=== PATIENT | female | born 1945 | race American Indian/Alaskan Native ===

== ENCOUNTER 2017-09-16 07:51 | Day surgery (SDC) | payer MEDICARE, OTHER ==
[2017-09-07 09:56] VITALS: BMI 38.3
[2017-09-16] MEDS ORDERED: Propofol 10 mg/ml Inj (20 ML) ONE (08:24)
[2017-09-16] MEDS ORDERED: Sodium Chloride 0.9% 1,000 ML IV SCH (09:15)
[2017-09-16 10:44] VITALS: RESP 16; TEMP 98; O2SAT 99
[2017-09-16 11:09] VITALS: BP 140/51; PULSE 60
== END 2017-09-16 11:21 | disposition home or self-care (01) ==
LOC: ENDO 07:51
PROVIDERS: ATTEND Specialist
DX: K21.0 Gastro-esophageal reflux disease with esophagitis (principal); K29.70 Gastritis, unspecified, without bleeding
CPT/HCPCS: 43239; 88305; 88312; 88342; J2001; J2704; J3010; J7030; J7040

== ENCOUNTER 2018-11-25 06:34 | Day surgery (SDC) | payer MEDICARE, OTHER ==
[2017-09-07 09:56] VITALS: BMI 38.3
[2018-11-25 07:17] VITALS: TEMP 98
[2018-11-25] MEDS ORDERED: Propofol 10 mg/ml Inj (20 ML) ONE (07:57)
[2018-11-25] MEDS ORDERED: Sodium Chloride 0.9% 1,000 ML IV SCH (08:45)
[2018-11-25 12:48] VITALS: BP 133/70; PULSE 53; O2SAT 99
[2018-11-25 12:54] VITALS: RESP 18
== END 2018-11-25 10:35 | disposition home or self-care (01) ==
LOC: ENDO 06:34
PROVIDERS: ATTEND Specialist
DX: Z12.11 Encounter for screening for malignant neoplasm of colon (principal); K57.30 Diverticulosis of large intestine without perforation or abscess without bleeding; K64.8 Other hemorrhoids; I10 Essential (primary) hypertension
CPT/HCPCS: 45378; J2704; J7030; J7040

== ENCOUNTER 2019-02-22 10:34 | Outpatient (CLI) | payer MEDICARE | END 2019-02-22 10:35 | disposition home or self-care (01) | LOC: RAD 10:34 | DX: Z13.820 Encounter for screening for osteoporosis (principal) ==